=== PATIENT | female | born 1945 | race Caucasian/White ===

== ENCOUNTER 2020-03-30 21:48 | Observation (INO) ==
[2020-03-30] MEDS ORDERED: ONDANSETRON INJ 2 MG/ML 2 ML VIAL IV STA (22:00)
[2020-03-30] MEDS ORDERED: MoRPHine SULFATE 4 MG/ML 1 ML CARP\\VIAL IV STA (22:00)
[2020-03-30] MEDS ORDERED: SODIUM CHLORIDE 0.9% 1000ML 500 ML IV ONE (22:01)
[2020-03-30] MEDS ORDERED: CLINDAMYCIN 600 MG/54 ML BAG IV ONE (22:06)
--- NOTE | 2020-03-30 22:10 | Emergency Department Note ---
History of Present Illness General Chief complaint: Facial Injury/Pain Stated complaint: ORAL PAIN AND SWELLING History of Present Illness Maximum Pain Intensity: 10 This 74-year-old presents to the ER complaining of dental and facial pain for the past few days who saw her dentist the other day and has an infected root canal Location: Right side of face Quality: Throbbing Severity: Moderate Duration: Past few days Timing: Started 4 days ago Context: Symptoms got much worse and patient came in Modifying factors: better with nothing; worse with palpation Patient was started on penicillin by her dentist and then today was called in Keflex. The swelling and pain is got much worse. Patient can barely open her mouth. Patient has a history of rheumatic fever. Patient denies chest pain, dyspnea, fevers, flulike illness. No IV drug abuse. Home Medications Home Medications Medication Instructions Recorded Confirmed Type ascorbic acid (vitamin C) 500 mg PO DAILY 03/30/20 03/30/20 History aspirin [Aspirin Low Dose] 81 mg PO DAILY 03/30/20 03/30/20 History azelastine 2 spray INTRANASAL BID 03/30/20 03/30/20 History calcium carbonate-vitamin D3 1 tab PO BID 03/30/20 03/30/20 History [Calcium 600 with Vitamin D3] cholecalciferol (vitamin D3) 25 mcg PO DAILY 03/30/20 03/30/20 History cyanocobalamin (vitamin B-12) 500 mcg PO DAILY 03/30/20 03/30/20 History tfvofhih-gbnv-gtt2-C-zulema-bosw 1 tab PO BID 03/30/20 03/30/20 History ipratropium bromide 2 spray INTRANASAL AMPM PRN 03/30/20 03/30/20 History montelukast 10 mg PO DAILY 03/30/20 03/30/20 History omega 2-qci-qqx-fish oil [Fish Oil] 1 cap PO DAILY 03/30/20 03/30/20 History omeprazole 20 mg PO QAM 03/30/20 03/30/20 History penicillin V potassium 500 mg PO QID 03/30/20 03/30/20 History simvastatin 40 mg PO QPM 03/30/20 03/30/20 History vitamin E 400 unit PO DAILY 03/30/20 03/30/20 History vitamins A,C,O-nsrg-pxnxfw 1 tab PO DAILY 03/30/20 03/30/20 History [PreserVision AREDS] zinc 0 mg PO DAILY 03/30/20 03/30/20 History Allergies Allergy/AdvReac Type Severity Reaction Status Date / Time pneumococcal vaccine Allergy Swelling Unverified 03/30/20 23:32 [From Prevnar 13 (PF)] of arm codeine AdvReac Unknown NAUSEA Verified 11/16/19 13:26 Past Med/Surg History Medical History (Updated 03/31/20 @ 00:14 by Zakia Rob PA-C) Dyslipidemia Heart murmur Rheumatic fever Surgical History History of hip surgery Social History Preferred Language: Maldivian marital status: / Feels Safe at Home: Yes Smoking Status: Former smoker Hx Alcohol Use: Yes Review of Systems A total of 10 systems reviewed and were otherwise negative Physical Exam Vital Signs Vital Signs - 24 hr 03/30/20 21:51 03/30/20 23:01 Temperature 36.7 C Temperature Source Oral Pulse Rate 112 H Pulse Rate [Right Finger] 91 H Respiratory Rate 18 19 Respiratory Effort / Characteristics Non-Labored Respiratory Depth Normal Respiratory Pattern Regular Blood Pressure 163/81 H Blood Pressure [Right Arm] 138/71 Blood Pressure Mean 108 Blood Pressure Mean [Right Arm] 93 Pulse Oximetry 94 92 Oxygen Delivery Method Room Air Sepsis Recent Fever Within 48 Hours No Sepsis Action Taken by Nursing No Action Required VITALS: Vitals are noted on the nurse's note and reviewed by myself. Vital signs hypertensive. GENERAL: Pleasant female who appears in pain, in no acute distress, nondiaphoretic, well-developed well-nourished. SKIN: Right lower jawline and face erythematous and edematous concerning for infection, the rest of the skin was without rashes, erythema, edema, or bruising. There is no tenting of the skin. Capillary reflex less than 2 seconds. HEAD: Normocephalic atraumatic. EARS: External auditory canals clear, tympanic membranes pearly acosta without erythema or effusion bilaterally. EYES: Pupils equal round and reactive to light and accommodation. Conjunctivae without injection, sclerae without icterus. Extraocular movements intact. NOSE: Patent, turbinates without inflammation or discharge. No sinus tend erness. MOUTH: Mucous membranes moist. Pharynx without erythema or exudate. Uvula midline. Airway patent. Tongue does not deviate. Positive trismus Dental exam: Right lower gumline erythematous and edematous concerning for infection, no Ky's angina. Right lower second molar with dental decay. NECK: Supple without nuchal rigidity. Right anterior cervical lymphadenopathy. No thyromegaly. Cervical spine is nontender. No JVD. HEART: Regular rate and rhythm LUNGS: Clear to auscultation bilaterally without wheezes, rales or rhonchi. No retractions or accessory muscle use. ABDOMEN: Positive bowel sounds x 4. Normal tympanic percussion. Soft, nontender, without masses or organomegaly. Valadez sign negative. No guarding or rebound tenderness. No CVA tenderness MUSCULOSKELETAL: No muscle atrophy, erythema, or edema noted. NEURO: Patient was alert and oriented to person place and time. Normal sensation to light and sharp touch. No focal neurological deficits. Course Administered Medications Ioversol (Optiray 320 100ml) 100 ml IV ONCE PRN PRN Reason: Interaction Checking Stop: 04/03/20 22:50 Last Admin: 03/30/20 22:51 Dose: 90 ml Documented by: [id number] Discontinued Medications Hydromorphone HCl (Dilaudid) 0.5 mg IV NOW STA Stop: 03/30/20 22:59 Last Admin: 03/30/20 23:15 Dose: 0.5 mg Documented by: [id number] Sodium Chloride (Nss 1000ml) 500 mls @ 999 mls/hr IV .Q31M ONE Stop: 03/30/20 22:31 Last Infusion: 03/30/20 22:40 Dose: 0 mls/hr Documented by: [id number] Admin: 03/30/20 22:09 Dose: 999 mls/hr Documented by: [id number] Clindamycin Phosphate (Cleocin) 600 mg in 54 mls @ 100 mls/hr IV ONE ONE Stop: 03/30/20 22:38 Last Infusion: 03/30/20 23:09 Dose: 0 mls/hr Documented by: [id number] Admin: 03/30/20 22:30 Dose: 100 mls/hr Documented by: [id number] Morphine Sulfate (Morphine Sulfate) 4 mg IV NOW STA Stop: 03/30/20 22:01 Last Admin: 03/30/20 22:09 Dose: 4 mg Documented by: [id number] Ondansetron HCl (Zofran) 4 mg IV NOW STA Stop: 03/30/20 22:01 Last Admin: 03/30/20 22:09 Dose: 4 mg Documented by: [id number] Oxycodone HCl (Roxicodone Immediate Rel) 5 mg PO NOW STA Stop: 03/30/20 23:08 Last Admin: 03/30/20 23:15 Dose: 5 mg Documented by: [id number] Medical Decision Making Medical Records Attestation: I reviewed the patient's medical records. Home Medications Current Medication List: was personally reviewed by me Laboratory Data Attestation: I reviewed the patient's lab results. Result diagrams: 03/30/20 22:11 03/30/20 22:11 Lab Results 03/30/20 03/30/20 Range/Units 22:11 22:11 WBC 10.84 H (4.8-10.8) K/uL RBC 4.71 (4.2-5.4) M/uL Hgb 12.5 (12.0-16.0) g/dL Hct 39.3 (37-47) % MCV 83.4 (80-100) fL MCH 26.5 (25-34) pg MCHC 31.8 L (32-36) g/dL RDW Std Deviation 44.0 (36.4-46.3) fL RDW Coeff of Rakan 14.4 (11.5-14.5) % Plt Count 249 (130-400) K/uL MPV 9.7 (7.4-10.4) fL Immature Gran % (Auto) 0.1 % Neut % (Auto) 70.4 % Lymph % (Auto) 21.5 % [place] % (Auto) 7.2 % Eos % (Auto) 0.7 % Baso % (Auto) 0.1 % Neut # (Auto) 7.63 H (1.4-6.5) K/uL Lymph # (Auto) 2.33 (1.2-3.4) K/uL [place] # (Auto) 0.78 H (0.11-0.59) K/uL Eos # (Auto) 0.08 (0-0.5) K/uL Baso # (Auto) 0.01 (0-0.2) K/uL Immature Gran # (Auto) 0.01 (0.00-0.02) K/uL Sodium 141 (136-145) mmol/L Potassium 3.5 (3.5-5.1) mmol/L Chloride 107 (98-107) mmol/L Carbon Dioxide 26 (21-32) mmol/L Anion Gap 7.0 (3-11) BUN 15 (7-18) mg/dl Creatinine 1.16 (0.6-1.2) mg/dl Est Cr Clr Drug Dosing 45.3 ml/min Est GFR ( Amer) 54.1 Est GFR (Non-Af Amer) 46.7 BUN/Creatinine Ratio 12.8 (10-20) Glucose 144 H (70-99) mg/dl Calcium 9.5 (8.5-10.1) mg/dl Total Bilirubin 0.5 (0.2-1) mg/dl AST 20 (15-37) U/L ALT 30 (12-78) U/L Alkaline Phosphatase 71 (45-117) U/L Total Protein 7.1 (6.4-8.2) gm/dl Albumin 3.7 (3.4-5.0) gm/dl Globulin 3.4 (2.5-4.0) gm/dl Albumin/Globulin Ratio 1.1 (0.9-2) Imaging Data Attestation: I personally reviewed and interpreted this imaging study as follows: Blood Pressure Blood Pressure Findings: Elevated blood pressure Blood Pressure Disposition: Referred to patients primary care provider [facility] [place] Narrative Prior records reviewed and summarized as above. Triage Nursing notes reviewed. Additional history obtained from family. The patient's history was concerning for mouth problem. Differential diagnosis: Etiologies such as cellulitis, abscess, Ozzy's angina, gingivitis, dental cavity, dental decay, dental infection, as well as others were entertained.. Physical examination: As above ER treatment provided: Morphine, Dilaudid, Zofran, clindamycin On reassessment the patient felt better. Diagnostics interpreted by me: The labs revealed leukocytosis Imaging studies: CT FACIAL: Soft tissue thickening and stranding along the body of the right mandible. Consider phlegmon or cellulitis. No organized fluid collection. Small air fluid level rt maxillary sinus. Correlate for acute sinusitis. No airway narrowing. Globes are intact. No osseous abnormalities. Radiologist: Lisandro Bonilla M.D. Consultation: A consultation was placed with Dr. Mendenhall and recommends antibiotics and medical admission. He states will see the patient tomorrow for definitive care. I consulted Dr. Jessica, hospitalist. The case was discussed and diagnostics were reviewed. The patient was evaluated in the ER for further treatment. This appears to be facial cellulitis with dental infection who is failed outpatient treatment. Medicine and oral surgery were contacted. Patient will be admitted. Patient was on antibiotics. By the evaluation outlined above emergent etiologies such as Ozzy's angina, as well as others were deemed relatively unlikely. The pt informed about the findings as listed above. All questions were answered and pleased with the treatment. The chart was completed utilizing [employer] Speech voice recognition software. Grammatical errors, random word insertions, pronoun errors, and incomplete sentences are an occassional consequence of this system due to software limitations, ambient noise, and hardware issues. Any formal questions or concerns about the content, text, or information contained within the body of this dictation should be directly addressed to the physician physician's assistant for clarification. Impression & Plan Facial cellulitis, Dental infection, Failure of outpatient treatment Discharge Plan Visit Data Chief Complaint: Facial Injury/Pain Stated Complaint: ORAL PAIN AND SWELLING ED Provider: Sergio Ariza ED Midlevel Provider: Zakia Rob Discharge Problem: Facial cellulitis, Dental infection, Failure of outpatient treatment Patient Disposition: Being Evaluated by Hospitalist Condition: Good Forms Stand Alone Forms: My [facility] [email or web address] Prescriptions Prescriptions: No Action omega 3-ebo-sme-fish oil [Fish Oil] 1,200 (144-216) mg Capsule 1 cap PO DAILY RF: 0 ipratropium bromide 0.03 % spray,non-aerosol 2 spray INTRANASAL AMPM PRN (Reason: Congestion) RF: 0 penicillin V potassium 500 mg tablet 500 mg PO QID RF: 0 omeprazole 20 mg capsule,delayed release(DR/EC) 20 mg PO QAM RF: 0 montelukast 10 mg tablet 10 mg PO DAILY RF: 0 simvastatin 40 mg tablet 40 mg PO QPM RF: 0 azelastine 137 mcg (0.1 %) aerosol,spray 2 spray INTRANASAL BID RF: 0 Calcium 600 with Vitamin D3 600 mg(1,500mg) -400 unit Tablet,Chewable 1 tab PO BID RF: 0 zinc 50 mg Tablet 0 mg PO DAILY RF: 0 cyanocobalamin (vitamin B-12) 500 mcg Tablet 500 mcg PO DAILY RF: 0 cholecalciferol (vitamin D3) 25 mcg (1,000 unit) Tablet 25 mcg PO DAILY RF: 0 aspirin [Aspirin Low Dose] 81 mg Tablet,Delayed Release (Dr/Ec) 81 mg PO DAILY RF: 0 ascorbic acid (vitamin C) 500 mg Tablet 500 mg PO DAILY RF: 0 vitamin E 400 unit Capsule 400 unit PO DAILY RF: 0 PreserVision AREDS 7,160-113-100 odlw-ac-ddmc Tablet 1 tab PO DAILY RF: 0 opalcpfd-wpnl-jup9-C-zulema-bosw 500-416.6-20 mg Tablet 1 tab PO BID RF: 0 Referrals Referrals: Sergio Morelos MD [Primary Care Provider] -
[2020-03-30 22:21] LABS: Basophils # (auto) 0.01 K/uL (0-0.2); Basophils % (auto) 0.1 %; Eosinophils # (auto) 0.08 K/uL (0-0.5); Eosinophils % (auto) 0.7 %; Hematocrit (blood only) 39.3 % (37-47); Hemoglobin 12.5 g/dL (12.0-16.0); Immature Granulocytes # (auto) 0.01 K/uL (0.00-0.02); Immature Granulocytes % (auto) 0.1 %; Lymphocytes # (auto) 2.33 K/uL (1.2-3.4); Lymphocytes % (auto) 21.5 %; Mean Corpuscular Hemoglobin 26.5 pg (25-34); Mean Corpuscular Hgb Conc 31.8 g/dL (32-36); Mean Corpuscular Volume 83.4 fL (80-100); Mean Platelet Volume 9.7 fL (7.4-10.4); Monocytes # (auto) 0.78 K/uL (0.11-0.59); Monocytes % (auto) 7.2 %; Neutrophils # (auto) 7.63 K/uL (1.4-6.5); Neutrophils % (auto) 70.4 %; Platelet Count 249 K/uL (130-400); RDW Coefficient of Variation 14.4 % (11.5-14.5); Red Blood Count 4.71 M/uL (4.2-5.4); White Blood Count 10.84 K/uL (4.8-10.8)
[2020-03-30 22:39] LABS: Albumin Level 3.7 gm/dl (3.4-5.0); BUN Creatinine Ratio 12.8 (10-20); Calcium 9.5 mg/dl (8.5-10.1); Creatinine Clr Calc Pharmacy 45.3 ml/min; Est GFR (African American) 54.1; Est GFR (Non-African American) 46.7; Potassium 3.5 mmol/L (3.5-5.1)
[2020-03-30 22:42] LABS: Albumin Globulin Ratio 1.1 (0.9-2); Bilirubin,Total 0.5 mg/dl (0.2-1); Globulin 3.4 gm/dl (2.5-4.0); Total Protein 7.1 gm/dl (6.4-8.2)
[2020-03-30] MEDS ORDERED: IOVERSOL 100ml IV PRN (22:51)
[2020-03-30] MEDS ORDERED: HYDROmorphone INJ 0.5 MG/0.5 ML SYR IV STA (22:58)
[2020-03-30] MEDS ORDERED: OXYCODONE HCL IR 5 MG TAB (IMMEDIATE RELEASE) PO STA (23:07)
--- NOTE | 2020-03-31 00:31 | History & Physical Report ---
Date of Service March 31, 2020 Assessment & Plan (1) Facial cellulitis: Right facial mandibular cellulitis/dental infection/failure of outpatient treatment- Patient's had worsening symptoms despite use of penicillin. N.p.o. Given clindamycin 600 mg IV in ED. Admit on vancomycin IV and ceftriaxone IV Zofran 4 mg IV every 6 hours as needed Famotidine 20 mg IV daily 12 hours Acetaminophen 1000 mg IV every 8 hours PRN mild pain or temperature Morphine sulfate 4 mg IV every 3 hours as needed severe pain Dr. Mendenhall has been consulted. Present on Admission?: Yes (2) Dental infection: See above Present on Admission?: Yes (3) Failure of outpatient treatment: See above Present on Admission?: Yes History of Present Illness Chief Complaint: The patient presents to the emergency department with complaint of 3 days of worsening right lower gum pain and then extending to right cheek and face pain and swelling. She has been on penicillin in outpatient setting but continues to worsen. Primary Care Provider: Sergio Morelos MD The patient is a 74-year-old female with a past medical history including degenerative joint disease of right hip, allergy, vitamin B12 deficiency, COPD, GERD, and hyperlipidemia. She presents with the above symptoms. The emergency department contacted Dr. Mendenhall, who will see the patient in the a.m. Patient did receive clindamycin 600 mg IV x1 from the ED. Allergies Allergy/AdvReac Type Severity Reaction Status Date / Time pneumococcal vaccine Allergy Swelling Unverified 03/30/20 23:32 [From Prevnar 13 (PF)] of arm codeine AdvReac Unknown NAUSEA Verified 11/16/19 13:26 Home Medications Home Medications Medication Instructions Recorded Confirmed Type ascorbic acid (vitamin C) 500 mg PO DAILY 03/30/20 03/30/20 History aspirin [Aspirin Low Dose] 81 mg PO DAILY 03/30/20 03/30/20 History azelastine 2 spray INTRANASAL BID 03/30/20 03/30/20 History calcium carbonate-vitamin D3 1 tab PO BID 03/30/20 03/30/20 History [Calcium 600 with Vitamin D3] cholecalciferol (vitamin D3) 25 mcg PO DAILY 03/30/20 03/30/20 History cyanocobalamin (vitamin B-12) 500 mcg PO DAILY 03/30/20 03/30/20 History bkbstexf-odwq-rra8-C-zulema-bosw 1 tab PO BID 03/30/20 03/30/20 History ipratropium bromide 2 spray INTRANASAL AMPM PRN 03/30/20 03/30/20 History montelukast 10 mg PO DAILY 03/30/20 03/30/20 History omega 8-zri-wnw-fish oil [Fish Oil] 1 cap PO DAILY 03/30/20 03/30/20 History omeprazole 20 mg PO QAM 03/30/20 03/30/20 History penicillin V potassium 500 mg PO QID 03/30/20 03/30/20 History simvastatin 40 mg PO QPM 03/30/20 03/30/20 History vitamin E 400 unit PO DAILY 03/30/20 03/30/20 History vitamins A,C,S-wtnq-ravuxs 1 tab PO DAILY 03/30/20 03/30/20 History [PreserVision AREDS] zinc 0 mg PO DAILY 03/30/20 03/30/20 History Past Med/Surg History Medical History (Updated 03/31/20 @ 00:37 by Tomy Perez MD) Dyslipidemia Heart murmur Rheumatic fever Surgical History History of hip surgery Social History Preferred Language: Vietnamese marital status: / Feels Safe at Home: Yes Smoking Status: Former smoker Hx Alcohol Use: Yes Review of Systems Review of Systems: The patient denies chest pain, palpitations, shortness of breath, dyspnea on exertion, cough, lower extremity swelling, sore throat, fevers, chills, sweats, vomiting, diarrhea , constipation, abdominal pain, pelvic pain, blood in urine or stool, dysuria, urinary frequency or urgency, lightheadedness, dizziness, memory loss, loss of consciousness, rash, abnormal bruising or bleeding, imbalance, focal or generalized weakness, numbness or tingling in arms or legs, back or neck pain, or night sweats. The review of systems is otherwise negative other than for that already noted above, and at least 10 systems have been reviewed. Physical Exam Physical Exam: The patient is awake, alert and oriented 3, well developed and well nourished, lying in bed and in no acute distress. HEENT--PERRL, EOMI, mucous membranes and oropharynx dry. Moderately severe right mandibular swelling and pain Neck--supple. No JVD. No bruits. Thyroid normal, trachea midline, no adenopathy. Heart--normal S1 and S2. No murmurs, rubs or gallops. Lungs--clear bilaterally, no respiratory distress, no accessory muscle use. Abdomen--normal bowel sounds and soft. Nontender. Nondistended. Extremities--no cyanosis or clubbing. No edema. There are good distal pulses b/l. Dermatologic--normal skin turgor, normal color, no abnormal lymph nodes, no rash. Neurologic--cranial nerves II through XII grossly intact. Rheumatologic--normal range of motion. Psychiatric--normal affect. Results & Data Results & Data ([facility]) Vital Signs (Past 12 Hours) Vital Signs Temp Pulse Pulse Resp BP BP Pulse Ox 03/30/20 23:01 91 H 19 138/71 92 03/30/20 21:51 98.1 F 112 H 18 163/81 H 94 Laboratory Results Laboratory Results WBC 10.84 K/uL (4.8-10.8) H 03/30/20 22:11 RBC 4.71 M/uL (4.2-5.4) 03/30/20 22:11 Hgb 12.5 g/dL (12.0-16.0) 03/30/20 22:11 Hct 39.3 % (37-47) 03/30/20 22:11 MCV 83.4 fL (80-100) 03/30/20 22:11 MCH 26.5 pg (25-34) 03/30/20 22:11 MCHC 31.8 g/dL (32-36) L 03/30/20 22:11 RDW Std Deviation 44.0 fL (36.4-46.3) 03/30/20 22:11 RDW Coeff of Rakan 14.4 % (11.5-14.5) 03/30/20 22:11 Plt Count 249 K/uL (130-400) 03/30/20 22:11 MPV 9.7 fL (7.4-10.4) 03/30/20 22:11 Immature Gran % (Auto) 0.1 % 03/30/20 22:11 Neut % (Auto) 70.4 % 03/30/20 22:11 Lymph % (Auto) 21.5 % 03/30/20 22:11 [place] % (Auto) 7.2 % 03/30/20 22:11 Eos % (Auto) 0.7 % 03/30/20 22:11 Baso % (Auto) 0.1 % 03/30/20 22:11 Neut # (Auto) 7.63 K/uL (1.4-6.5) H 03/30/20 22:11 Lymph # (Auto) 2.33 K/uL (1.2-3.4) 03/30/20 22:11 [place] # (Auto) 0.78 K/uL (0.11-0.59) H 03/30/20 22:11 Eos # (Auto) 0.08 K/uL (0-0.5) 03/30/20 22:11 Baso # (Auto) 0.01 K/uL (0-0.2) 03/30/20 22:11 Immature Gran # (Auto) 0.01 K/uL (0.00-0.02) 03/30/20 22:11 Sodium 141 mmol/L (136-145) 03/30/20 22:11 Potassium 3.5 mmol/L (3.5-5.1) 03/30/20 22:11 Chloride 107 mmol/L (98-107) 03/30/20 22:11 Carbon Dioxide 26 mmol/L (21-32) 03/30/20 22:11 Anion Gap 7.0 (3-11) 03/30/20 22:11 BUN 15 mg/dl (7-18) 03/30/20 22:11 Creatinine 1.16 mg/dl (0.6-1.2) 03/30/20 22:11 Est Cr Clr Drug Dosing 45.3 ml/min 03/30/20 22:11 Est GFR ( Amer) 54.1 03/30/20 22:11 Est GFR (Non-Af Amer) 46.7 03/30/20 22:11 BUN/Creatinine Ratio 12.8 (10-20) 03/30/20 22:11 Glucose 144 mg/dl (70-99) H 03/30/20 22:11 Calcium 9.5 mg/dl (8.5-10.1) 03/30/20 22:11 Total Bilirubin 0.5 mg/dl (0.2-1) 03/30/20 22:11 AST 20 U/L (15-37) 03/30/20 22:11 ALT 30 U/L (12-78) 03/30/20 22:11 Alkaline Phosphatase 71 U/L (45-117) 03/30/20 22:11 Total Protein 7.1 gm/dl (6.4-8.2) 03/30/20 22:11 Albumin 3.7 gm/dl (3.4-5.0) 03/30/20 22:11 Globulin 3.4 gm/dl (2.5-4.0) 03/30/20 22:11 Albumin/Globulin Ratio 1.1 (0.9-2) 03/30/20 22:11 Diagnostic Findings [facility] Patient: SEBASTIÁN MCCALL (Female) : 47 Status: ER Date: 03/30/20 22:59 Room #: History: PAIN AT RIGHT SIDE OF JAW, DENTAL INFECTION Slices: [id number] Priors: Tech: Yifan Pavon @ [phone] Exams: CT FACIAL Contrast: IV Amt: 90 ML OPTIRAY 320 Accession Numbers: [id number] Preliminary Findings Only See Final Report For Complete Findings CT FACIAL: Soft tissue thickening and stranding along the body of the right mandible. Consider phlegmon or cellulitis. No organized fluid collection. Small air fluid level rt maxillary sinus. Correlate for acute sinusitis. No airway narrowing. Globes are intact. No osseous abnormalities. Radiologist: Lisandro Bonilla M.D. Study ready at 23:05 and initial results transmitted at 23:23 *This report constitutes a preliminary interpretation only. Non-acute findings felt to be unrelated to the clinical presentation may not be discussed in this report. The study will be interpreted and a final report will be generated by the local Radiologist the following shift. To reach the hospital radiology department call [phone]. If a discrepancy is found between the preliminary and final interpretations of this study, please notify us via our Client Portal at [email or web address].You can also fax this report with a description of the discrepancy, or include the final report, to our daytime fax number [phone].If faxing, please indicate the severity of discrepancy using one of the following categories: [ ] 1 - Agree/Informational [ ] 2 - Unlikely to Affect Management [ ] 3 - Possible Eventual Change of Management [ ] 4 - Probable Immediate Change of Management For all other patient related information, please fax us at [phone]. [id number] Code Status & VTE Plan Code Status Full code VTE Prophylaxis Plan VTE Prophylaxis will be ordered: Yes PG Care Time/CCT Total # of Minutes Spent Total Time Spent with Patient: Total time spent is greater than 50% in coordination of care (as documented) at patient's floor/unit and/or counseling patient: Coding Level of Care Code 07938 Initial Inpt Care Lvl 2 Diagnoses Facial cellulitis L03.211 Dental infection K04.7 Failure of outpatient treatment Z78.9
[2020-03-31] MEDS ORDERED: ACETAMINOPHEN 1,000 MG/100 ML VIAL IV PRN (01:13)
[2020-03-31] MEDS ORDERED: ONDANSETRON INJ 2 MG/ML 2 ML VIAL IV PRN ×2 (01:13→18:39)
[2020-03-31] MEDS ORDERED: VANCOMYCIN CONSULT ACTIVE PRN (01:13)
[2020-03-31] MEDS: NSS + 20MEQ KCL 20 MEQ/1,000 ML BAG IV SCH ×2 (01:32→11:35)
[2020-03-31] MEDS: MoRPHine SULFATE 4 MG/ML 1 ML CARP\\VIAL IV PRN ×2 (01:32→20:31)
[2020-03-31] MEDS: cefTRIAXone SODIUM 2,000 MG in DEXTROSE 5% 50 ML IV SCH (01:41)
[2020-03-31] MEDS ORDERED: VANCOMYCIN HCL 1,750 MG in SODIUM CHLORIDE 0.9% 500 ML IV SCH (02:00)
--- NOTE | 2020-03-31 08:29 | Surgery Consultation ---
Date of Consultation March 31 2020 Oral Maxillofacial Surgery Exam emergency consult acute facial infection right side Present Complaint: I have pain/swelling/drainage from my infected tooth right side Symptoms have been ongoing for a while they would come and go getting worse since Saturday night. Saw her dentist Dr Navdeep Pollock who suggested root canal took panorex --I will obtain. A detailed oral exam was completed. Finding- swollen and tender gingival tissue with deep pocket formation tooth # 30 lower right side . Swollen right submandibular area with pointing at inferior boarder. Panorex: The Panorex X Ray will be reviewed, for any abnormal findings other then the infected tooth # 30 I did review the CT scan -- see report The following teeth are decayed/fractured--#30 The following teeth are planned to be removed--# 30 with ? extra oral I&D Soft tissue of the floor of the mouth, tongue, hard/soft palate, posterior pharyngeal area all with in normal limits, no pathology or abnormal findings noted other then the lateral right side swelling. Cancer exam--No lesions noted that require follow up or Bx. Oral Care---Overall oral care is good Occlusion---Class I TMJ exam: No pop, clicking, pain, good ROM, No history of TMJ injury or dysfunction Periodontal exam---good well maintained, routine dental care Neck is supple, FROM, Able to extend and flex neck w/o difficulty, no masses, no abnormalities, no airway issues, no evidence of sleep apnea. Noted the right side cheek and submand. area swelling Plan: Set up with general anesthesia in hospital due to complexity of the procedure Risks reviewed (see below) I reviewed the treatment plan and consent with the patient. Understanding was expressed. Time was given for questions regarding the surgery, risks and post op care. The procedure will be set today in OR she is NPO Review of informed consent with patient ( extraction of # 30 and I&D) Reason for surgery to remove fractured decayed tooth and drain the infection: Infected # 39 and abscessed/swelling , removal is indicated and medically necessary. The following tooth is decayed and fractured and removal is indicated DON---# 30 with I&D Risks discussed: Pain,swelling,infection, dry socket, delayed healing, nerve injury to face,lips,tongue,chin area which could be permanent (rare). TMJ, jaw stiffness, change in bite (rare), ear pain (referred). Need to leave a small root fragment in place to avoid injury to nerve or sinus. Home care reviewed--tooth brushing, rinsing, follow up care with Dr Mendenhall. diet=hyugl-ugki-nqcw dental. Discussed activity level, driving/work while on Rx pain Meds once she is D/C. Plan: For the GA and surgery at Hospital this afternoon. Consent signed, OR notified. History of Present Illness Attending Physician: Placido Duron DO Allergies Allergy/AdvReac Type Severity Reaction Status Date / Time pneumococcal vaccine Allergy Swelling Unverified 03/30/20 23:32 [From Prevnar 13 (PF)] of arm codeine AdvReac Unknown NAUSEA Verified 11/16/19 13:26 Home Medications Home Medications Medication Instructions Recorded Confirmed Type ascorbic acid (vitamin C) 500 mg PO DAILY 03/30/20 03/30/20 History aspirin [Aspirin Low Dose] 81 mg PO DAILY 03/30/20 03/30/20 History azelastine 2 spray INTRANASAL BID 03/30/20 03/30/20 History calcium carbonate-vitamin D3 1 tab PO BID 03/30/20 03/30/20 History [Calcium 600 with Vitamin D3] cholecalciferol (vitamin D3) 25 mcg PO DAILY 03/30/20 03/30/20 History cyanocobalamin (vitamin B-12) 500 mcg PO DAILY 03/30/20 03/30/20 History rszbjqcu-phqb-lnd4-C-zulema-bosw 1 tab PO BID 03/30/20 03/30/20 History ipratropium bromide 2 spray INTRANASAL AMPM PRN 03/30/20 03/30/20 History montelukast 10 mg PO DAILY 03/30/20 03/30/20 History omega 7-pfx-sft-fish oil [Fish Oil] 1 cap PO DAILY 03/30/20 03/30/20 History omeprazole 20 mg PO QAM 03/30/20 03/30/20 History penicillin V potassium 500 mg PO QID 03/30/20 03/30/20 History simvastatin 40 mg PO QPM 03/30/20 03/30/20 History vitamin E 400 unit PO DAILY 03/30/20 03/30/20 History vitamins A,C,Q-dqbf-bsgvkg 1 tab PO DAILY 03/30/20 03/30/20 History [PreserVision AREDS] zinc 0 mg PO DAILY 03/30/20 03/30/20 History Patient History Medical History (Updated 03/31/20 @ 00:37 by Tomy Perez MD) Dyslipidemia Heart murmur Rheumatic fever Surgical History History of hip surgery Social History Preferred Language: Namibian Communication Ability: Effective Reel Winder Required: No Beliefs That Will Affect Care: None marital status: / Current Living Situation: Alone Feels Safe at Home: Yes Smoking Status: Former smoker Tobacco Type: cigarettes ; Second Hand Exposure: No ; Hx Alcohol Use: Yes Alcohol type: wine and hard liquor Hx Substance Use: No Results & Data Vital Signs (Past 12 Hours) Vital Signs Temp Pulse Pulse Resp BP BP Pulse Ox 03/31/20 07:15 37.2 C 87 18 103/66 90 03/31/20 01:15 37.1 C 96 H 16 159/80 H 95 03/31/20 00:28 80 19 134/79 97 03/30/20 23:01 91 H 19 138/71 92 03/30/20 21:51 36.7 C 112 H 18 163/81 H 94 PG Care Time/CCT Total # of Minutes Spent Total Time Spent with Patient: Total time spent is greater than 50% in coordination of care (as documented) at patient's floor/unit and/or counseling patient: Coding Level of Care Code 40542 Initial Inpt Care Lvl 3
--- NOTE | 2020-03-31 08:47 | CT Scan Report ---
CT facial bones w con HISTORY: right local jaw/dental infx TECHNIQUE: Multiaxial CT images of maxillofacial region were performed following the use of intraveno us contrast and reformatted in the sagittal and coronal planes. COMPARISON STUDY: None. FINDINGS: The visualized brain parenchyma and orbits are unremarkable. Trace fluid level within the r ight maxillary sinus. The mastoid air cells are clear. Dental hardware results in artifact through th e oropharynx and midface. There is right mandibular soft tissue swelling. However, no definite absces s identified on this study. Small focus of gas within a superficial vein of the right face as seen on image 146. However, this could be due to prior intravenous line insertion. Pterygopalatine fossa and paratracheal fat spaces are well-maintained. IMPRESSION: 1. Soft tissue thickening and fat stranding along the body of the right hemimandible suggestive of ce llulitis/phlegmon. No definite fluid collection at this time to suggest an abscess. Of note, this are a is partially obscured by the metallic artifact from the dental hardware. 2. Trace fluid level within the right maxillary sinus suggestive of an acute sinusitis. ACT 112: Negative or not required by law. Electronically signed by: Kodi Sotelo M.D. 03/31/2020 7:21 AM
[2020-03-31] MEDS ORDERED: VANCOMYCIN HCL 1,000 MG in SODIUM CHLORIDE 0.9% 250 ML IV SCH (09:00)
--- NOTE | 2020-03-31 09:13 | Pharmacy Report ---
Pharmacy Abx Initial Consult - Date of Service March 31, 2020 - Pharmacy Dosing Scope Date of Consult: 03/31/2020 Consultation requested by: Dr. Perez Pharmacy is consulted to initiate Vancomycin IV dosing therapy, order appropriate labs and adjust drug dose/frequency. - Subjective The patient is a 74 year old F admitted on 03/31/20 00:24. - Objective Height: 5 ft 6 in Weight: 77.4 kg Vital Signs (Past 12hrs): Vital Signs Temp Pulse Pulse Resp BP BP Pulse Ox 03/31/20 07:15 37.2 C 87 18 103/66 90 03/31/20 01:15 37.1 C 96 H 16 159/80 H 95 03/31/20 00:28 80 19 134/79 97 03/30/20 23:01 91 H 19 138/71 92 03/30/20 21:51 36.7 C 112 H 18 163/81 H 94 Lab Results (24hrs): Laboratory Tests (24 Hours) 03/30/20 03/30/20 22:11 22:11 WBC 10.84 H Neut # (Auto) 7.63 H Creatinine 1.16 Est Cr Clr Drug Dosing 45.3 - Risk Factors for Resistance * Antimicrobial use within the last 90 days: * Recently started on PenVK - Assessment & Plan Assessment 74 year old F admitted secondary to facial pain * No significant PMHx * Saw her outpatient dentist who diagnosed her with an infected root canal and prescribed PenVK. No improvement on PenVK so patient presented to ER. * Face CT shows "soft tissue swelling...suggestive of cellulitis/phlegmon...no fluid collections to suggest an abscess" * To OR today to have infected tooth removed * Received Clindamycin 600 mg IV x 1 in ED. Then started on Ceftriaxone 2 g IV Q24H (pharmacy not consulted) and Vancomycin Plan Vancomycin for treatment of facial cellulitis Vancomycin IV * Patient meets criteria for vancomycin AUC dosing nomogram * AUC/SUZY is the preferred PK/PD target for vancomycin * Target AUC/SUZY = 400-600 * AUC guided dosing is effective and associated with decreased risk of nephrotoxicity * Maintenance Dose = 1000 mg IV Q12H per nomogram * Trough will be ordered for Saturday to ensure therapeutic dosing Ceftriaxone * 2 g IV Q24H - appropriate per indication Pharmacy will continue to follow and will adjust dose/frequency as necessary. Thank you.
[2020-03-31 09:33] LABS: Creatinine Clr Calc Pharmacy 53.7 ml/min; Est GFR (African American) 66.3; Est GFR (Non-African American) 57.2
[2020-03-31] MEDS: FAMOTIDINE 20 MG in SYRINGE 3 ML IV SCH ×2 (10:07→20:41)
--- NOTE | 2020-03-31 11:17 | Anesthesiology Consultation ---
Date of Service March 31, 2020 Assessment & Plan (1) Encounter for pre-operative examination: Chart Review Chart Review: Acceptable Risk for Surgery and Patient NOT seen in Pre Admission Testing Consults Requested none ASA ASA3 Proposed Anesthesia Anesthesia Type: General Risk / Benefits Reviewed With: PT / POA / Parent / Guardian, Accepts Plan and In formed Consent Obtained History Surgery Operation Date: 03/31/20 09:10 Proposed Procedures p Right Incision and Drainage Submandibular and - Alfredo Mendenhall DMD s Tooth Extraction - Alfredo Mendenhall DMD Height/Weight Height: 5 ft 6 in Weight: 77.4 kg Allergies Allergy/AdvReac Type Severity Reaction Status Date / Time pneumococcal vaccine Allergy Swelling Unverified 03/30/20 23:32 [From Prevnar 13 (PF)] of arm codeine AdvReac Unknown NAUSEA Verified 11/16/19 13:26 Medications Home Medications Medication Instructions Recorded Confirmed Last Taken ascorbic acid (vitamin C) 500 mg PO DAILY 03/30/20 03/30/20 Unknown aspirin [Aspirin Low Dose] 81 mg PO DAILY 03/30/20 03/30/20 Unknown azelastine 2 spray INTRANASAL BID 03/30/20 03/30/20 Unknown calcium carbonate-vitamin D3 1 tab PO BID 03/30/20 03/30/20 Unknown [Calcium 600 with Vitamin D3] cholecalciferol (vitamin D3) 25 mcg PO DAILY 03/30/20 03/30/20 Unknown cyanocobalamin (vitamin B-12) 500 mcg PO DAILY 03/30/20 03/30/20 Unknown wvshpvwz-acey-wnu7-C-zulema-bosw 1 tab PO BID 03/30/20 03/30/20 Unknown ipratropium bromide 2 spray INTRANASAL AMPM PRN 03/30/20 03/30/20 Unknown montelukast 10 mg PO DAILY 03/30/20 03/30/20 Unknown omega 0-jgp-rlk-fish oil [Fish Oil] 1 cap PO DAILY 03/30/20 03/30/20 Unknown omeprazole 20 mg PO QAM 03/30/20 03/30/20 Unknown penicillin V potassium 500 mg PO QID 03/30/20 03/30/20 Unknown simvastatin 40 mg PO QPM 03/30/20 03/30/20 Unknown vitamin E 400 unit PO DAILY 03/30/20 03/30/20 Unknown vitamins A,C,X-tgcs-yldswd 1 tab PO DAILY 03/30/20 03/30/20 Unknown [PreserVision AREDS] zinc 0 mg PO DAILY 03/30/20 03/30/20 Unknown amoxicillin 875 mg-potassium 1 tab PO Q12H #14 tab 03/31/20 Unknown clavulanate 125 mg tablet Active Medications Generic Name Dose Route Start Last Admin Trade Name Freq PRN Reason Stop Dose Admin Famotidine 20 mg/ Syringe 5 mls @ 2.5 mls/min 03/31/20 09:00 03/31/20 10:07 IV 04/30/20 08:59 2.5 mls/min Q12H NASIMA Administration Ceftriaxone Sodium 2,000 mg/ 70 mls @ 100 mls/hr 03/31/20 01:30 03/31/20 04:20 Dextrose IV 04/07/20 01:29 Infused Q24H NASIMA Infusion Protocol Potassium Chloride/Sodium Chloride 20 meq in 1,000 mls @ 100 mls/hr 03/31/20 01:13 03/31/20 11:35 Normal Saline W/20 Meq Kcl IV 04/30/20 01:12 100 mls/hr .Q10H NASIMA Administration Vancomycin HCl 1,000 mg/ 270 mls @ 125 mls/hr 03/31/20 14:00 03/31/20 16:31 Sodium Chloride IV 04/10/20 13:59 Infused Q12H NASIMA Infusion Ioversol 100 ml 03/30/20 22:51 03/30/20 22:51 Optiray 320 100ml IV 04/03/20 22:50 90 ml ONCE PRN Administration Interaction Checking Lactobacillus Acidophilus 4 tab 03/31/20 12:00 03/31/20 16:31 Floranex PO 04/30/20 11:59 Not Given QIDM NASIMA Miscellaneous 1 ea 03/31/20 08:00 03/31/20 16:00 Order Awaiting Action N/A 04/30/20 07:59 Not Given QS NASIMA Morphine Sulfate 4 mg 03/31/20 01:13 03/31/20 01:32 Morphine Sulfate IV 04/14/20 01:12 4 mg Q3H PRN Administration Pain Past Medical History Medical History (Updated 03/31/20 @ 11:16 by Harpreet Ramos MD) COPD (chronic obstructive pulmonary disease) Dyslipidemia GERD (gastroesophageal reflux disease) Heart murmur Rheumatic fever Exercise / Class Metabolic Activity II 4-5 Yardwork/Stairs/Walk up hill Past Surgical History Surgical History History of hip surgery Past Anesthesia History No Hx of Anesthesia Complications and No Family Hx of Anesthesia Complications History of PONV No Hx of PONV and No Hx of Motion Sickness Social History Smoking Status: Former smoker tobacco type: cigarettes Do You Dip or Chew Tobacco: No Hx Alcohol Use: Yes Alcohol type: wine and hard liquor alcohol intake frequency: a few times a week Hx Substance Use: No substance use type: does not use Physical Exam Vital Signs Last Vital Signs Temp 37.4 C 03/31/20 17:10 Pulse 81 03/31/20 17:10 Resp 18 03/31/20 17:10 BP 105/57 L 03/31/20 17:10 Pulse Ox 92 03/31/20 17:10 ENMT Mouth: no dentition abnormality Thyromental Distance: > or= 3.5 Finger Breadths Mallampati Class: II Neck normal visual inspection Respiratory normal respiratory effort Auscultation: lungs clear to auscultation bilaterally Cardiovascular Rate/Rhythm: regular rate and regular rhythm Psychiatric Orientation: alert Testing Laboratory Results 03/30/20 22:11 03/31/20 09:05
--- NOTE | 2020-03-31 13:14 | Hospitalist Progress Note ---
Date of Service March 31, 2020 Assessment & Plan (1) Facial cellulitis: Jayshree Nesbitt is a 74y/o F w/ PMH significant for degenerative joint disease of right hip, vitamin B12 deficiency, COPD, GERD, and hyperlipidemia; presenting for concern of increase right cheek and face pain with swelling Facial cellulitis: - was trialed on Penicillin as an outpatient for 3 days before presenting to hospital - in ED received one dose of Clindamycin; before being started on Vancomycin and Rocephin - likely source of infection deemed to be from fractured tooth with abscess formation - [facility] surgery consulted: Dr. Mendenhall made aware of case last night, with plans for extraction of fractured tooth with abscess drainage - continue current antibiotic regimen until AM - started on probiotics for the continued alterations of abx regimen Dental infection: - as above (2) Dental infection: Admission and Anticipated Discharge Date Admission Date: March 31, 2020 Supervising Physician Co-Signing Physician Notes I personally examined the patient and verified all wells points of history and exam, discussed case, and agree with decision making with Dr Rod. pain controlled. for OR later today. appreciative of care. vitals noted nad heent nc at mmm face swollen dull erythema no blisters/crusts/pustules. breathing unlabored no accessory muscles good effort. no focal neuro deficits dental infection/surrounding facial cellulitis - abx, surgery, pain control. doing well overall. otherwise as above Subjective For the first time in several days, she has no current jaw pain. Does feel her face as slightly more tender along her jaw but this is considerably better than what brought her to the hospital. Has not noticed any redness or tenderness around her eye, has no pain with eye motion, or changes in vision. Review of Systems Review of Systems: All systems reviewed & are unremarkable except as noted in Subjective Physical Exam Constitutional: WD/WN, vitals as above Eyes: PERRL, conjunctivae normal, anicteric sclerae Neck: normal visual inspection Respiratory: normal respiratory effort, lungs clear to auscultation Cardiovascular: Rate/Rhythm: regular rate and regular rhythm Heart Sounds: no gallop, no murmur and no cardiac rub Vessels: no JVD Extremities: no pedal edema Gastrointestinal (Abdomen): normal bowel sounds, soft, nontender, no hepatosplenomegaly Skin: skin tightening over maxillary and mandibular portions of face, no extension to periorbital tissue Lymphatic: no cervical lymphadenopathy Results & Data Results & Data ([facility]) Vital Signs (Past 12 Hours) Vital Signs Temp Pulse Resp BP Pulse Ox 03/31/20 07:15 37.2 C 87 18 103/66 90 03/31/20 01:15 37.1 C 96 H 16 159/80 H 95 Laboratory Results 03/31/20 03/30/20 03/30/20 Range/Units 09:05 22:11 22:11 WBC 10.84 H (4.8-10.8) K/uL RBC 4.71 (4.2-5.4) M/uL Hgb 12.5 (12.0-16.0) g/dL Hct 39.3 (37-47) % MCV 83.4 (80-100) fL MCH 26.5 (25-34) pg MCHC 31.8 L (32-36) g/dL RDW Std Deviation 44.0 (36.4-46.3) fL RDW Coeff of Rakan 14.4 (11.5-14.5) % Plt Count 249 (130-400) K/uL MPV 9.7 (7.4-10.4) fL Immature Gran % (Auto) 0.1 % Neut % (Auto) 70.4 % Lymph % (Auto) 21.5 % Obion % (Auto) 7.2 % Eos % (Auto) 0.7 % Baso % (Auto) 0.1 % Neut # (Auto) 7.63 H (1.4-6.5) K/uL Lymph # (Auto) 2.33 (1.2-3.4) K/uL [place] # (Auto) 0.78 H (0.11-0.59) K/uL Eos # (Auto) 0.08 (0-0.5) K/uL Baso # (Auto) 0.01 (0-0.2) K/uL Immature Gran # (Auto) 0.01 (0.00-0.02) K/uL Sodium 141 (136-145) mmol/L Potassium 3.5 (3.5-5.1) mmol/L Chloride 107 (98-107) mmol/L Carbon Dioxide 26 (21-32) mmol/L Anion Gap 7.0 (3-11) BUN 15 (7-18) mg/dl Creatinine 0.98 1.16 (0.6-1.2) mg/dl Est Cr Clr Drug Dosing 53.7 45.3 ml/min Est GFR ( Amer) 66.3 54.1 Est GFR (Non-Af Amer) 57.2 46.7 BUN/Creatinine Ratio 12.8 (10-20) Glucose 144 H (70-99) mg/dl Calcium 9.5 (8.5-10.1) mg/dl Total Bilirubin 0.5 (0.2-1) mg/dl AST 20 (15-37) U/L ALT 30 (12-78) U/L Alkaline Phosphatase 71 (45-117) U/L Total Protein 7.1 (6.4-8.2) gm/dl Albumin 3.7 (3.4-5.0) gm/dl Globulin 3.4 (2.5-4.0) gm/dl Albumin/Globulin Ratio 1.1 (0.9-2) Medications Administered Current Inpatient Medications Famotidine 20 mg/ Syringe 5 mls @ 2.5 mls/min IV Q12H [facility] Stop: 04/30/20 08:59 Last Admin: 03/31/20 10:07 Dose: 2.5 mls/min Documented by: Ceftriaxone Sodium 2,000 mg/ (Dextrose) 70 mls @ 100 mls/hr IV Q24H [facility]; Protocol Stop: 04/07/20 01:29 Last Infusion: 03/31/20 04:20 Dose: Infused Documented by: Potassium Chloride/Sodium Chloride (Normal Saline W/20 Meq Kcl) 20 meq in 1,000 mls @ 100 mls/hr IV .Q10H [facility]IMA Stop: 04/30/20 01:12 Last Admin: 03/31/20 01:32 Dose: 100 mls/hr Documented by: Acetaminophen (Ofirmev) 1,000 mg in 100 mls @ 400 mls/hr IV Q8H PRN PRN Reason: Pain or Fever Stop: 04/03/20 01:12 Vancomycin HCl 1,000 mg/ (Sodium Chloride) 270 mls @ 125 mls/hr IV Q12H [facility] Stop: 04/10/20 13:59 Ioversol (Optiray 320 100ml) 100 ml IV ONCE PRN PRN Reason: Interaction Checking Stop: 04/03/20 22:50 Last Admin: 03/30/20 22:51 Dose: 90 ml Documented by: Lactobacillus Acidophilus (Floranex) 4 tab PO QIDM [facility]IM[facility] Stop: 04/30/20 11:59 Miscellaneous (Order Awaiting Action) 1 ea N/A QS [facility]IMA Stop: 04/30/20 07:59 Last Admin: 03/31/20 09:42 Dose: Not Given Documented by: Miscellaneous Information (Consult) 1 ea N/A UD PRN PRN Reason: Consult Stop: 04/30/20 01:12 Morphine Sulfate (Morphine Sulfate) 4 mg IV Q3H PRN PRN Reason: Pain Stop: 04/14/20 01:12 Last Admin: 03/31/20 01:32 Dose: 4 mg Documented by: Ondansetron HCl (Zofran) 4 mg IV Q6H PRN PRN Reason: Nausea Stop: 04/30/20 01:12 Resident Activity Tracking Resident Involvement: Resident Care Provided Care Provided: Adult Hospital Medicine
[2020-03-31] MEDS: LACTOBACILLUS ACIDOPHILUS (FLORANEX) TAB PO SCH ×3 (13:19→20:34)
[2020-03-31] MEDS: VANCOMYCIN HCL 1,000 MG in SODIUM CHLORIDE 0.9% 250 ML IV SCH (14:13)
[2020-03-31] MEDS ORDERED: CHLORHEXIDINE GLUCONATE 0.12% 480 ML ONE (16:58)
[2020-03-31] MEDS ORDERED: BUPIVACAINE/EPINEPHRINE 0.5% 1:200,000 1.8 ML CARP ONE (16:59)
[2020-03-31] MEDS ORDERED: PHENYLEPHRINE HCL 0.5% NA SPRAY 15 ML BTL ONE (17:16)
[2020-03-31] MEDS ORDERED: GLYCOPYRROLATE 0.2 MG/ML VIAL ONE (17:25)
[2020-03-31] MEDS ORDERED: PROPOFOL IV EMULSION 10 MG/ML 20 ML VIAL IV ONE ×2 (17:25→17:26)
[2020-03-31] MEDS ORDERED: MIDAZOLAM HCL 1 MG/ML 2ML VIAL ONE (17:25)
[2020-03-31] MEDS ORDERED: ONDANSETRON INJ 2 MG/ML 2 ML VIAL ONE (17:25)
[2020-03-31] MEDS ORDERED: LIDOCAINE HCL 2% 2 ML VIAL/AMP(20MG/ML) INFIL ONE (17:25)
[2020-03-31] MEDS ORDERED: DEXAMETHASONE SOD INJ 4 MG/ML VIAL ONE (17:25)
[2020-03-31] MEDS ORDERED: NEOSTIGMINE METHYLSULFATE 5 MG/5 ML SYR ONE (17:25)
[2020-03-31] MEDS ORDERED: fentaNYL citrate 100 MCG/2 ML VIAL ONE (17:25)
[2020-03-31] MEDS ORDERED: LIDOCAINE 2% JELLY 5 ML TUBE ONE (17:28)
--- NOTE | 2020-03-31 17:35 | History & Physical Bridge Note ---
Date of Service March 31, 2020 History & Physical Bridge Note I have examined the patient, reviewed the History & Physical and in the interval since the performance of the History & Physical I have noted the following changes of clinical significance: no changes noted reviewed panorex I&D right submand. area and ext of # 30
--- NOTE | 2020-03-31 17:36 | Billing Data ---
Date of Service March 31, 2020 Coding Level of Care Code 72055 Subseq Hosp Care Lvl 2
[2020-03-31] MEDS ORDERED: SUCCINYLCHOLINE CHLORIDE 20 MG/ML 10 ML VIAL IV ONE (18:07)
[2020-03-31] MEDS ORDERED: LARYING-O-JET KIT (LTA) ONE (18:07)
--- NOTE | 2020-03-31 18:34 | Operative Report ---
Post Operative Report Pre & Post Diagnosis Operation Date: 03/31/20 09:10 Pre-Op Diagnosis: Infected #30 tooth and acute facial infection right side Post-Op Diagnosis: Infected #30 tooth and acute facial infection right side I identified the patient and participated in the time-out.: Yes Procedure Operation Date: 03/31/20 09:10 Actual Procedures p Right Incision and Drainage Submandibular and(Right) - Alfredo Mendenhall DMD s Tooth Extraction #30 right lower jaw(Right) - Alfredo Mendenhall DMD Problem: Pain,swelling located---right submandibular area / abscessed # 30 Finding: There is a carious, fractured and infected tooth at site#30 Plan: Surgical removal of the following tooth # 30 Intra-oral I&D subperiosteal and mandibular space Procedure report: After a complete H&P/ vital signs and oral exam was completed the patient was ready for the surgical procedure. Informed consent was reviewed and the consent form was signed. I gave them time to discuss any questions and if I explained the surgery that I will be performing to their understanding. The patient was positioned and light adjusted, Peridex mouth rinse was used and a final time out was taken to review the correct procedure, once agreed the local anesthesia was given in the standard fashion for the area of surgery. Local Anesthesia: Using 1.8 cc Marcaine as a block with epi as an infiltration, profound anesthesia was obtained within 3 minutes. Surgical Note: Now using a periosteal elevator the tissue was reflected to expose the alveolar bone. The rongeurs was used to remove bone to allow the forceps to engage solid tooth structure. Using a controlled force the tooth was extracted in the standard manner. Once removed the roots were inspected and the socket was curetted. Now using the Electro surg unit the flap was extended to the retromolar/mandibular space --this space was opened and much pus was drained. The periosteal space was also drained--a 1/4 benton drain was placed into the spaces and sutured into place to promote drainage. Sutures used: 2-0 chromic and Pen emiliano drain A gauze pressure pack was placed over the socket and the patient was instructed to bite for 10 minutes. Rx given: Augmentin 875 x 14 1 q 12 hrs. Motrin or Tylenol as needed once home Post Op instructions: At this time I inspected the site: bleeding was controlled, instructions given by nursing staff (diet, oral care, use of gauze, follow up, pain management, activity, no driving if narcotics were Rx.) Discharge: The patient tolerated the GA /extraction procedure extremely well Patient will be discharged from hospital pending approval from the hospital service and followed by me in the office Surgeon: Alfredo Mendenhall DMD Oral Maxillofacial Surgery [facility] Surgeon Alfredo Mendenhall, DMD Clinical Operations Specialist none Estimated Blood Loss 2 Findings Consistent with Post-Op Diagnosis Specimens none Description of Procedure I&D and removal of infected # 30 I attest to the content of the Intraoperative Record and any orders documented therein. Any exceptions are noted below.
[2020-03-31] MEDS ORDERED: ATROPINE SULFATE 0.1 MG/ML 10ML SYR IV PRN (18:39)
[2020-03-31] MEDS ORDERED: fentaNYL citrate 100 MCG/2 ML VIAL IV PRN (18:39)
[2020-03-31] MEDS ORDERED: ePHEDrine sulfate 50 MG/ML AMP IV PRN (18:39)
--- NOTE | 2020-03-31 18:40 | Anesthesiology Progress Note ---
Date of Service March 31, 2020 Anesthesia Post Procedure Vital Signs Vital Signs: Temp Pulse Pulse Resp BP BP Pulse Ox 03/31/20 17:10 37.4 C 81 18 105/57 L 92 03/31/20 15:03 37.1 C 80 18 104/67 93 03/31/20 07:15 37.2 C 87 18 103/66 90 03/31/20 01:15 37.1 C 96 H 16 159/80 H 95 03/31/20 00:28 80 19 134/79 97 03/30/20 23:01 91 H 19 138/71 92 03/30/20 21:51 36.7 C 112 H 18 163/81 H 94 Pain Intensity Face: Pain Intensity: 10 Transfer of Care Handoff Completed per policy Notes Mental Status: alert / awake / arousable Patient Amnestic to Procedure: Yes Nausea / Vomiting: adequately controlled Pain: adequately controlled Airway Patency, RR, SpO2: stable & adequate BP & HR: stable & adequate Hydration State: stable & adequate Anesthetic Complications: no major complications apparent
--- NOTE | 2020-03-31 18:41 | Progress Note ---
Date of Service Mrs. Nesbitt did very well PLEASE MAKE SURE SHE GETS DIET TOLERATED TO NIGHT I WILL SEE HER IN THE MORNING AND IF STABLE WILL PLAN D/C WITH ORAL ANTIBIOTICS --AUGMENTIN 875 FOLLOW UP WITH ME IN 1 WEEK March 31, 2020 Assessment & Plan Admission and Anticipated Discharge Date Admission Date: March 31, 2020 Results & Data ([facility]) Vital Signs (Past 12 Hours) Vital Signs Temp Pulse Resp BP Pulse Ox 03/31/20 17:10 37.4 C 81 18 105/57 L 92 03/31/20 15:03 37.1 C 80 18 104/67 93 03/31/20 07:15 37.2 C 87 18 103/66 90 PG Care Time/CCT Total # of Minutes Spent Total Time Spent with Patient: Total time spent is greater than 50% in coordination of care (as documented) at patient's floor/unit and/or counseling patient: Coding Level of Care Code None
[2020-03-31] MEDS ORDERED: HYDROmorphone INJ 2 MG/ML SYR/VIAL ONE (18:44)
[2020-03-31] MEDS ORDERED: Nursing to Pharmacy Communication SCH (19:45)
--- NOTE | 2020-03-31 21:59 | Electrocardiogram Report ---
Test Reason : Blood Pressure : / mmHG Vent. Rate : 083 BPM Atrial Rate : 083 BPM P-R Int : 190 ms QRS Dur : 084 ms QT Int : 372 ms P-R-T Axes : 053 047 050 degrees QTc Int : 437 ms Normal sinus rhythm Cannot rule out Anterior infarct , age undetermined Abnormal ECG When compared with ECG of 16-JUL-2010 08:49, Premature atrial complexes are no longer Present Confirmed by Ravi Gómez ([id number]) on 03/31/2020 9:59:29 PM Referred By: REFERRED SELF Confirmed By:Ravi Gómez
[2020-04-01] MEDS: MoRPHine SULFATE 4 MG/ML 1 ML CARP\\VIAL IV PRN (00:02)
[2020-04-01] MEDS: cefTRIAXone SODIUM 2,000 MG in DEXTROSE 5% 50 ML IV SCH (01:30)
[2020-04-01] MEDS: NSS + 20MEQ KCL 20 MEQ/1,000 ML BAG IV SCH (01:31)
[2020-04-01] MEDS: VANCOMYCIN HCL 1,000 MG in SODIUM CHLORIDE 0.9% 250 ML IV SCH (02:29)
--- NOTE | 2020-04-01 07:53 | Progress Note ---
Date of Service From surgical point of view doing very well swelling as expected, drainage good. Can be D/C if OK by hospitalist service. I reviewed her post op care and completed my part of the D/C instructions. Rx [facility] antibiotic E [facility]. Follow up April 07 Dr Mendenhall April 01, 2020 Assessment & Plan Admission and Anticipated Discharge Date Admission Date: March 31, 2020 Results & Data ([facility]) Vital Signs (Past 12 Hours) Vital Signs Temp Pulse Pulse Resp BP Pulse Ox 04/01/20 07:29 38.0 C H 75 18 106/64 03/31/20 22:58 36.9 C 80 18 128/69 95 03/31/20 21:29 37.1 C 72 21 131/67 93 03/31/20 20:25 37 C 81 19 128/72 93 PG Care Time/CCT Total # of Minutes Spent Total Time Spent with Patient: Total time spent is greater than 50% in coordination of care (as documented) at patient's floor/unit and/or counseling patient: Coding Level of Care Code 36226 Subseq Hosp Care Lvl 1
[2020-04-01] MEDS: LACTOBACILLUS ACIDOPHILUS (FLORANEX) TAB PO SCH (08:10)
[2020-04-01] MEDS: FAMOTIDINE 20 MG in SYRINGE 3 ML IV SCH (08:10)
[2020-04-01 09:15] LABS: Basophils # (auto) 0.01 K/uL (0-0.2); Basophils % (auto) 0.1 %; Hematocrit (blood only) 34.1 % (37-47); Hemoglobin 10.3 g/dL (12.0-16.0); Immature Granulocytes # (auto) 0.02 K/uL (0.00-0.02); Immature Granulocytes % (auto) 0.2 %; Lymphocytes # (auto) 1.63 K/uL (1.2-3.4); Lymphocytes % (auto) 18.3 %; Mean Corpuscular Hemoglobin 25.8 pg (25-34); Mean Corpuscular Hgb Conc 30.2 g/dL (32-36); Mean Corpuscular Volume 85.3 fL (80-100); Monocytes # (auto) 0.35 K/uL (0.11-0.59); Monocytes % (auto) 3.9 %; Neutrophils % (auto) 77.5 %; Platelet Count 220 K/uL (130-400); RDW Coefficient of Variation 14.9 % (11.5-14.5); RDW Standard Deviation 46.8 fL (36.4-46.3); White Blood Count 8.91 K/uL (4.8-10.8)
[2020-04-01 09:40] LABS: Creatinine Clr Calc Pharmacy 49.2 ml/min; Est GFR (African American) 59.6; Est GFR (Non-African American) 51.5
--- NOTE | 2020-04-01 10:37 | Discharge Summary ---
Date of Service April 01, 2020 Admission HPI Per Admitting Provider The patient is a 74-year-old female with a past medical history including degenerative joint disease of right hip, allergy, vitamin B12 deficiency, COPD, GERD, and hyperlipidemia. She presents with the above symptoms. The emergency department contacted Dr. Mendenhall, who will see the patient in the a.m. Patient did receive clindamycin 600 mg IV x1 from the ED. Principal Diagnosis Dental Abscess Discharge Exam Constitutional WD/WN, vitals as above Eyes PERRL, conjunctivae normal, anicteric sclerae Neck normal visual inspection Respiratory normal respiratory effort, lungs clear to auscultation Cardiovascular Rate/Rhythm: regular rate and regular rhythm Heart Sounds: no gallop, no murmur and no cardiac rub Vessels: no JVD Extremities: no pedal edema Gastrointestinal (Abdomen) normal bowel sounds, soft, nontender, no hepatosplenomegaly Skin improved facial erythema, with minor tenderness over right mandible Psychiatric A+Ox3, euthymic affect Lymphatic no cervical lymphadenopathy Discharge Data Allergies Allergy/AdvReac Type Severity Reaction Status Date / Time pneumococcal vaccine Allergy Swelling Unverified 03/30/20 23:32 [From Prevnar 13 (PF)] of arm codeine AdvReac Unknown NAUSEA Verified 11/16/19 13:26 Consultations 03/30/20 23:37 ED Decision to Admit Stat 03/31/20 01:13 Consult Case Management - Discharge Planning Routine 03/31/20 07:28 Consult Oromaxillofacial Surgery Routine Procedures Performed Operation Date: 03/31/20 09:10 Actual Procedures p Right Incision and Drainage Submandibular and(Right) - Alfredo Mendenhall DMD s Tooth Extraction #30 right lower jaw(Right) - Alfredo Mendenhall DMD Ordered Studies 03/30/20 22:00 CT facial bones w con Urgent Hospital Course (1) Facial cellulitis: Jayshree Nesbitt is a 74y/o F w/ PMH significant for degenerative joint disease of right hip, vitamin B12 deficiency, COPD, GERD, and hyperlipidemia; presenting for concern of increase right cheek and face pain with swelling Dental infection: - was trialed on Penicillin as an outpatient for 3 days before presenting to hospital with abscess and concerns for facial cellulitis - [facility] surgery consulted: Dr. Mendenhall extracted fractured tooth and drained abscess, plan for follow-up on 04/07 - continue Augmentin 875mg BID for 7 days - started on probiotics for large variations of (2) Dental infection: Total Time Total Time Spent Total Time Spent (In Minutes): <30 Discharge Plan Discharge Items Patient Disposition: Home - Self-Care Reason For Visit: FACIAL CELLULITIS Discharge Diagnosis: S/P facial infection from abscessed # 30 Condition on Discharge: Good Activity: Resume your previous activity Lifting: Gradually increase as tolerated Bathing: No limitations Exercise/Sports: Gradually increase as tolerated Driving/Machine Use: Resume 1 day after discharge Weightbearing: Full weightbearing Non-emergency contact: Surgeon Call non-emergency contact if: you have any medication questions, your pain is unusual for you, your temperature is above 101.5, your wound has increased redness, your wound has increased drainage and your wound pain has increased Follow-up/Referrals: Sergio Morelos MD [Primary Care Provider] - Alfredo Mendenhall DMD [Physician] - Diet: Regular Diet Comment: clear--Full--dental soft as tolerated Addtl Attending Provider Instructions: ADDITIONAL ACTIVITY RECOMMENDATIONS: * [place] teeth after every meal. It is very important to keep your mouth clean to prevent infection. SPECIAL CARE INSTRUCTIONS: *After you get home apply heat (hot water bottle or heating pad) for the next two days, as often as possible. * Tomorrow start rinsing your mouth with 1/2 teaspoon salt in 8 ounces warm water. This rinse should be used every 4-6 hours. * You may experience slight nausea. To prevent this, never take your medication on an empty stomach. If nauseated, take small sips of ijeoma irish until you feel better; then you may start on applesauce and toast. * Some swelling is common. It should gradually decrease within 4-5 days. * A certain amount of bleeding is to be expected. It is often possible to control mild oozing by placing folded gauze over the area and biting down for 30 minutes. If you are unable to control excessive bleeding, Call Dr Mendenhall [phone] * You may experience some discomfort for a few days. If pain or swelling increases, call. Return to see Dr Mendenhall for drain removal in 1 week --APRIL 07 in the afternoon Call office for time OFFICE [address] Please call for time [phone] If drain should come loose or come out that is not a problem and no concern. Pending Studies at Discharge: No Stand-Alone Forms: [facility], Smoking Cessation Medications and DC Order Prescriptions: Continued amoxicillin-pot clavulanate 875-125 mg tablet 1 tab PO Q12H Qty: 14 RF: 0 omega 7-mnm-ewf-fish oil [Fish Oil] 1,200 (144-216) mg Capsule 1 cap PO DAILY RF: 0 ipratropium bromide 0.03 % spray,non-aerosol 2 spray INTRANASAL AMPM PRN (Reason: Congestion) RF: 0 omeprazole 20 mg capsule,delayed release(DR/EC) 20 mg PO QAM RF: 0 montelukast 10 mg tablet 10 mg PO DAILY RF: 0 simvastatin 40 mg tablet 40 mg PO QPM RF: 0 azelastine 137 mcg (0.1 %) aerosol,spray 2 spray INTRANASAL BID RF: 0 Calcium 600 with Vitamin D3 600 mg(1,500mg) -400 unit Tablet,Chewable 1 tab PO BID RF: 0 zinc 50 mg Tablet 0 mg PO DAILY RF: 0 cyanocobalamin (vitamin B-12) 500 mcg Tablet 500 mcg PO DAILY RF: 0 cholecalciferol (vitamin D3) 25 mcg (1,000 unit) Tablet 25 mcg PO DAILY RF: 0 aspirin [Aspirin Low Dose] 81 mg Tablet,Delayed Release (Dr/Ec) 81 mg PO DAILY RF: 0 ascorbic acid (vitamin C) 500 mg Tablet 500 mg PO DAILY RF: 0 vitamin E 400 unit Capsule 400 unit PO DAILY RF: 0 PreserVision AREDS 7,160-113-100 mddl-sh-uyql Tablet 1 tab PO DAILY RF: 0 bucynvgt-hdtg-wzf3-C-zulema-bosw 500-416.6-20 mg Tablet 1 tab PO BID RF: 0 Discontinued penicillin V potassium 500 mg tablet 500 mg PO QID RF: 0 Discharge Orders: Discharge Order (Routine); Ordered 04/01/20 Ordered By: Agustin Hutchins/Other Patient Handouts: ED Dental Abscess, ED Tooth Abscess Admission Data Admit Date/Time: 03/31/20 00:24 Attending Provider: Placido Duron Admit Provider: Tomy Perez Primary Care Provider: Sergio Morelos Other Providers: Tomy Perez ; Alfredo Mendnehall Other Interventions: Discharge Summary Assessment (RN) Last Done: 04/01/20 11:53 DC Date/Time DO NOT enter until pt leaves facility: 04/01/20 12:22 Supervising Physician Co-Signing Physician Notes I personally examined the patient and verified all wells points of history and exam, discussed case, and agree with decision making with Dr Rod. doing better feeling reasonable, feels up to going home vitals noted nad heent nc at mmm face swollen dull erythema no blisters/crusts/pustules - less than yesterday. breathing unlabored no accessory muscles good effort. no focal neuro deficits dental infection/surrounding facial cellulitis -doing better post op. stable for home, abx. outpt f/u otherwise as above Resident Activity Tracking Resident Involvement: Resident Care Provided Care Provided: Adult Hospital Medicine
[2020-04-01] MEDS ORDERED: IBUPROFEN 600 MG TAB PO STA (11:19)
--- NOTE | 2020-04-01 18:52 | Billing Data ---
Date of Service April 01, 2020 Coding Level of Care Code D/C Day Management <30 mins
[2020-04-02] MEDS ORDERED: VANCOMYCIN TROUGH ONE (13:30)
== END 2020-04-01 12:22 | disposition home or self-care (01) ==
LOC: ED 21:48 → 2W 03-31 00:24 → SUATTDRO 03-31 00:24 → INTOOBSV 03-31 00:24 → 2W 03-31 00:53